=== PATIENT | male | born 1950 | race Caucasian/White ===

== ENCOUNTER 2018-04-20 15:08 | Outpatient (CLI) | payer MEDICARE, BC ==
--- NOTE | 2018-04-20 15:56 | RAD ---
CERVICAL SPINE FIVE VIEWS INCLUDING FLEXION AND EXTENSION LATERAL VIEWS: History: 68-year-old male with history of neck pain with popping and cracking in neck for 6-7 weeks without ra diculopathy. FINDINGS: C7 and T1 are partially obscured on the lateral view. The tip of the odontoid and C1 are partially ob scured on the AP open mouth view. There is some generalized disc osteophytosis changes particularly a t C5-6 and C6-7 with diffuse uncal vertebral and facet arthrosis changes. No prevertebral soft tissue swelling. Moderate bilateral calcified carotid artery plaques. IMPRESSION: Cervical spondylosis. Bilateral calcified carotid artery plaques. No abnormal translation between fle xion and exenson. POS: [facility]
--- NOTE | 2018-04-20 17:19 | MRI ---
MRI CERVICAL SPINE NONCONTRAST: HISTORY: Neck pain. FINDINGS: The spinal cord throughout the cervical levels has a normal appearance without evidence of compressio n, expansion, or abnormal signal. Vertebral body heights are maintained. C2-C3: Mild osteophytosis. Central canal and neural foramina are patent. C3-C4: Very mild osteophyte/disk complex. Central canal and left neural foramen are patent. Mild s tenosis, right neural foramen. C4-C5: Mild posterior osteophyte/disk complex. Central canal and left neural foramen are patent. M ild stenosis, right neural foramen. C5-C6: Disk space narrowing. Mild posterior disk bulge. Circumferential degenerative changes with mild stenosis of the central canal. Moderate stenosis of each neural foramen. C6-C7: Minimal degenerative retrolisthesis. Mild disk bulge. Mild central canal stenosis. Moderat e right and severe left foraminal stenosis. C7-T1: Central canal and neural foramen are patent. IMPRESSION: 1. Degenerative changes throughout the cervical spine, as detailed above. 2. Stenosis most severe at the left neural foramen C6-C7 level. Clinical correlation regarding left C7 dermatome is required. POS: [facility]
== END 2018-04-20 15:09 | disposition home or self-care (01) ==
LOC: TBSIIMAG 15:08
PROVIDERS: ATTEND Physician Assistant Surgical
DX: M54.2 Cervicalgia (principal); M47.892 Other spondylosis, cervical region; M99.81 Other biomechanical lesions of cervical region; I65.23 Occlusion and stenosis of bilateral carotid arteries
CPT/HCPCS: 72050; 72141